=== PATIENT | male | born 1960 | race Caucasian/White ===

== ENCOUNTER 2016-08-28 09:31 | Day surgery (SDC) | payer BC ==
[~2016-08-28 09:31] MED LIST: ADVAIR 25028 BLISTE1 INH; ALBUTEROL PO; ALDACTONE25 M1 PO; ASPIR 8181 M1 PO; BUSPIRONE HCL10 M2 PO; CELEXA20 M2 PO; CHANTIX1 M1 PO; DEMADEX20 M1 PO; LISINOPRIL10 M1 PO; PROTONIX40 M2 PO; TOPROL XL100 M1 PO
== END 2016-08-28 16:20 ==
LOC: SHSB 09:31 → ORE 11:26 → PACU 13:12 → SHSB 13:25
PROC: 09SM0ZZ Reposition Nasal Septum, Open Approach (ICD-10-PCS; principal; 2016-08-28)
PROC: 099R4ZZ Drainage of Left Maxillary Sinus, Percutaneous Endoscopic Approach (ICD-10-PCS; 2016-08-28)
PROC: 099Q4ZZ Drainage of Right Maxillary Sinus, Percutaneous Endoscopic Approach (ICD-10-PCS; 2016-08-28)
PROC: 09TV4ZZ Resection of Left Ethmoid Sinus, Percutaneous Endoscopic Approach (ICD-10-PCS; 2016-08-28)
PROC: 09TU4ZZ Resection of Right Ethmoid Sinus, Percutaneous Endoscopic Approach (ICD-10-PCS; 2016-08-28)
DX: J34.2 Deviated nasal septum (principal); J32.8 Other chronic sinusitis; I11.0 Hypertensive heart disease with heart failure; I50.9 Heart failure, unspecified; F41.9 Anxiety disorder, unspecified; K21.9 Gastro-esophageal reflux disease without esophagitis; F17.200 Nicotine dependence, unspecified, uncomplicated; E66.01 Morbid (severe) obesity due to excess calories; Z68.41 Body mass index [BMI] 40.0-44.9, adult; Z88.0 Allergy status to penicillin; Z88.1 Allergy status to other antibiotic agents; Z88.2 Allergy status to sulfonamides; Z90.49 Acquired absence of other specified parts of digestive tract; Z98.890 Other specified postprocedural states
CPT/HCPCS: J0171; J1170; J2405; J7030